=== PATIENT | male | born 1985 | race Caucasian/White ===

== ENCOUNTER 2018-10-06 19:23 | Emergency (ER) | payer MEDICAID ==
[~2018-10-06] VITALS: Ht 170.2 cm; Wt 89.3 kg
[2018-10-06 19:28] VITALS: Ht 170.2 cm; Wt 89.3 kg
[2018-10-06] MEDS ORDERED: IBUPROFEN 600 MG TAB PO ONE (20:30)
[2018-10-06] MEDS ORDERED: IBUP-1542 PO (21:28)
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
[2018-10-06 22:55] VITALS: BP 120/60; PULSE 70; RESP 18
== END 2018-10-06 22:55 | disposition home or self-care (01) ==
LOC: FTE 19:23
DX: S10.93XA Contusion of unspecified part of neck, initial encounter (principal); V79.40XA Driver of bus injured in collision with unspecified motor vehicles in traffic accident, initial encounter
CPT/HCPCS: 72040; Z7502; Z7610